=== PATIENT | male | born 2000 | race Caucasian/White ===

== ENCOUNTER 2022-12-08 05:30 | Day surgery (SDC) | payer BC ==
[2022-12-08] MEDS ORDERED: Ketorolac Tromethamine 30 MG/ML VIAL ONE ×2 (06:20→11:11)
[2022-12-08] MEDS ORDERED: fentaNYL 50 mcg/mL 1 mL Vial ONE ×4 (06:20→14:50)
[2022-12-08 08:05] LABS: Bilirubin Negative (Negative); Blood, Urine 2+ (Negative); Clarity Clear (Clear); Glucose, Urine (Dipstick) Normal (Negative); Ketone, Urine Negative (Negative); Leukocyte 25 Leu/uL (Negative); Nitrite Negative (Negative); Protein, Urine (Dipstick) Negative (Neg-Trace); Specific Gravity, Urine 1.015 (1.002-1.036); Squamous Epithelial 0-3 HPF (0-3); Urobilinogen Normal mg/dL (Less than 2); pH, Urine 6.5 (5.0-9.0)
[2022-12-08 08:18] LABS: Bacteria/HPF 1+ HPF (None Seen); Calcium Oxalate Crystals 1+ HPF (None Seen)
[2022-12-08] MEDS ORDERED: Lidocaine 1% PF 5 ML VIAL ONE (11:11)
[2022-12-08] MEDS ORDERED: Ondansetron PF 4 MG/2 ML Vial ONE (11:11)
[2022-12-08] MEDS ORDERED: PROPOFOL 200 MG/20 ML VIAL ONE (11:11)
[2022-12-08] MEDS ORDERED: Dexamethasone 20 MG/5 ML VIAL ONE (11:11)
[2022-12-08] MEDS ORDERED: Levofloxacin 500 mg/D5W 100 ml Premix Bag ONE (11:18)
[2022-12-08] MEDS ORDERED: Midazolam HCl 2 mg/2 ml Vial ONE (13:17)
[2022-12-08] MEDS ORDERED: Phenazopyridine HCl 100 MG TAB ONE (14:21)
[2022-12-08] MEDS ORDERED: Oxybutynin 5 MG TAB ONE (14:21)
[2022-12-08] MEDS ORDERED: Morphine 2 MG/ML VIAL ONE (15:40)
== END 2022-12-08 16:41 | disposition home or self-care (01) ==
LOC: SDC 05:30
PROVIDERS: ATTEND Urology
PROC: 0T768DZ Dilation of Right Ureter with Intraluminal Device, Via Natural or Artificial Opening Endoscopic (ICD-10-PCS; principal; 2022-12-08)
DX: N20.2 Calculus of kidney with calculus of ureter (principal); F17.200 Nicotine dependence, unspecified, uncomplicated
CPT/HCPCS: 74018; 74420; 81001; 87086; C2617; J1100; J1885; J1956; J2250; J2272; J2405; J2704; J3010

== ENCOUNTER 2022-12-10 09:00 | Outpatient (CLI) | payer BC ==
[2022-12-10 09:31] LABS: Clarity Cloudy (Clear); Glucose, Urine (Dipstick) Normal (Negative); Ketone, Urine Negative (Negative); Specific Gravity, Urine 1.015 (1.005-1.030); pH, Urine 6.5 (5.0-9.0)
[2022-12-10 09:34] LABS: PTT 27.3 sec (22.0-33.0); Prothrombin Time 10.5 sec (9.5-12.1)
[2022-12-10 09:36] LABS: Anion Gap 16 mmol/L (10-20); BUN (Urea Nitrogen) 13 mg/dL (8.9-20.6); Bilirubin Unable to Interpret (Negative); Blood, Urine Unable to Interpret (Negative); Calc. Creatinine Clearance 0 mL/min (70-130); Calcium 9.4 mg/dL (7.8-10.44); Carbon Dioxide 24 mmol/L (22-29); Chloride 105 mmol/L (98-107); Estimated GFR 102; Glucose 87 mg/dL (70-105); Leukocyte Unable to Interpret (Negative); Nitrite Unable to Interpret (Negative); Potassium 4.1 mmol/L (3.5-5.1); Protein, Urine (Dipstick) Unable to Interpret mg/dl (Neg-Trace); Sodium 141 mmol/L (136-145); Urobilinogen UNABLE TO INTERPRET mg/dL (Less than 2)
[2022-12-10 09:38] LABS: Hemoglobin 13.5 g/dL (13.5-17.5); Mean Corpuscular HGB CONC 33.9 g/dL (32.0-36.0); Mean Corpuscular Hemoglobin 30.5 pg (27.0-33.0); Mean Platelet Volume 10.1 fl (7.4-10.4); Platelet Count 309 10x3/uL (150-450); RBC Distribution Width 12.6 % (11.5-14.5); Red Blood Cell (RBC) Count 4.42 10x6/uL (4.32-5.72); White Blood Cell (WBC) Count 10.3 10x3/uL (3.5-10.5)
[2022-12-10 09:49] LABS: RBC/HPF 21-50 HPF (0-3); Squamous Epithelial 0-3 HPF (0-3)
[2022-12-10 09:50] LABS: Bacteria/HPF Rare-Few HPF (None Seen); Calcium Oxalate Crystals Rare HPF (None Seen)
== END 2022-12-10 09:01 | disposition home or self-care (01) ==
LOC: LABBT 09:00
PROVIDERS: ATTEND Urology
DX: Z01.812 Encounter for preprocedural laboratory examination (principal); N20.2 Calculus of kidney with calculus of ureter; R35.0 Frequency of micturition; Z72.0 Tobacco use
CPT/HCPCS: 80048; 81001; 85027; 85610; 85730; 87086

== ENCOUNTER 2022-12-17 18:16 | Emergency (ER) | payer BC ==
[2022-12-17] MEDS ORDERED: Morphine 4 MG/ML VIAL ONE (18:36)
[2022-12-17] MEDS ORDERED: Ondansetron PF 4 MG/2 ML Vial ONE (18:36)
[2022-12-17] MEDS ORDERED: Ketorolac Tromethamine 30 MG/ML VIAL ONE (18:36)
[2022-12-17 19:31] LABS: Bilirubin Negative (Negative); Blood, Urine 3+ (Negative); Clarity Clear (Clear); Glucose, Urine (Dipstick) Normal (Negative); Ketone, Urine Negative (Negative); Leukocyte 500 Leu/uL (Negative); Nitrite Negative (Negative); Protein, Urine (Dipstick) 100 mg/dL (Neg-Trace); Specific Gravity, Urine 1.005 (1.002-1.036); Squamous Epithelial 0-3 HPF (0-3); Urobilinogen Normal mg/dL (Less than 2); pH, Urine 6.5 (5.0-9.0)
[2022-12-17 19:33] LABS: Bacteria/HPF 1+ HPF (None Seen)
[2022-12-17 19:39] LABS: ALT (SGPT) 14 U/L (8-55); AST (SGOT) 13 U/L (5-34); Albumin 4.5 g/dL (3.5-5.0); Alkaline Phosphatase 54 U/L (40-110); Anion Gap 15 mmol/L (10-20); BUN (Urea Nitrogen) 9 mg/dL (8.9-20.6); Bilirubin, Total 0.6 mg/dL (0.2-1.2); Calc. Creatinine Clearance 0 mL/min (70-130); Calcium 9.4 mg/dL (7.8-10.44); Carbon Dioxide 21 mmol/L (22-29); Chloride 106 mmol/L (98-107); Estimated GFR 104; Globulin 2.5 g/dL (2.4-3.5); Glucose 92 mg/dL (70-105); Potassium 3.6 mmol/L (3.5-5.1); Sodium 138 mmol/L (136-145)
[2022-12-17] MEDS ORDERED: cefTRIAXone (ROCEPHIN) 1 GM VIAL ONE (20:08)
== END 2022-12-17 21:15 | disposition home or self-care (01) ==
LOC: ERS 18:16
DX: N20.0 Calculus of kidney (principal)
CPT/HCPCS: 74177; 80053; 81003; 81015; 96365; 96375; J0696; J1885; J2270; J2405

== ENCOUNTER 2022-12-22 06:24 | Day surgery (SDC) | payer BC ==
[2022-12-21 09:01] VITALS: BMI 30.2
[2022-12-22] MEDS ORDERED: cefTRIAXone (ROCEPHIN) 2 GM VIAL ONE (07:16)
[2022-12-22] MEDS ORDERED: Sodium Chloride 0.9% 100 ML ONE (07:16)
[2022-12-22] MEDS ORDERED: fentaNYL PF 100 MCG/2 ML SYRINGE ONE (08:03)
[2022-12-22] MEDS ORDERED: Iopamidol 15 ML ONE (08:25)
[2022-12-22] MEDS ORDERED: fentaNYL 50 mcg/mL 1 mL Vial ONE ×3 (08:35→10:03)
[2022-12-22] MEDS ORDERED: Rocuronium Bromide 10 MG/ML (10ML VIAL) ONE (08:41)
[2022-12-22] MEDS ORDERED: PROPOFOL 200 MG/20 ML VIAL ONE (08:41)
[2022-12-22] MEDS ORDERED: Dexamethasone 20 MG/5 ML VIAL ONE (08:41)
[2022-12-22] MEDS ORDERED: Lidocaine 1% PF 5 ML VIAL ONE (08:41)
[2022-12-22] MEDS ORDERED: NEOSTIGMINE 3 MG/3 ML SYR 3 MG/3 ML SYRINGE ONE (08:41)
[2022-12-22] MEDS ORDERED: Glycopyrrolate 0.2 MG/ML 5 ML SYRINGE ONE (08:41)
[2022-12-22] MEDS ORDERED: Ketorolac Tromethamine 30 MG/ML VIAL ONE (08:41)
[2022-12-22] MEDS ORDERED: Ondansetron PF 4 MG/2 ML Vial ONE (08:41)
[2022-12-22] MEDS ORDERED: Meperidine HCl/PF 25 MG/ML VIAL ONE (09:45)
[2022-12-22] MEDS ORDERED: Phenazopyridine HCl 100 MG TAB ONE (09:53)
[2022-12-22] MEDS ORDERED: Oxybutynin 5 MG TAB ONE (09:53)
[2022-12-22] MEDS ORDERED: Tamsulosin HCl 0.4 MG CAP ONE (11:47)
== END 2022-12-22 13:18 | disposition home or self-care (01) ==
LOC: SDC 06:24
PROVIDERS: ATTEND Urology
PROC: 0TC08ZZ Extirpation of Matter from Right Kidney, Via Natural or Artificial Opening Endoscopic (ICD-10-PCS; principal; 2022-12-22)
PROC: 0T768DZ Dilation of Right Ureter with Intraluminal Device, Via Natural or Artificial Opening Endoscopic (ICD-10-PCS; principal; 2022-12-22)
DX: N20.0 Calculus of kidney (principal); F17.210 Nicotine dependence, cigarettes, uncomplicated; F17.290 Nicotine dependence, other tobacco product, uncomplicated
CPT/HCPCS: 74018; 74420; 82365; 88300; C1747; C1769; C2617; J0696; J2175; J3010; J3490; Q9967

== ENCOUNTER 2023-03-10 17:32 | Emergency (ER) | payer BC ==
[2023-03-10] MEDS ORDERED: Fluorescein Opthalmic Strip ONE (19:03)
[2023-03-10] MEDS ORDERED: Proparacaine 0.5% Opth 15 ML BOT ONE (19:03)
== END 2023-03-10 19:37 | disposition home or self-care (01) ==
LOC: ERS 17:32
DX: H15.101 Unspecified episcleritis, right eye (principal); F17.210 Nicotine dependence, cigarettes, uncomplicated
CPT/HCPCS: 99282

== ENCOUNTER 2023-04-13 14:57 | Outpatient (CLI) | payer BC | END 2023-04-13 14:58 | disposition home or self-care (01) | LOC: ULT 14:57 | PROVIDERS: ATTEND Urology | DX: N20.0 Calculus of kidney (principal); R35.0 Frequency of micturition | CPT/HCPCS: 74018; 76770 ==